=== PATIENT | male | born 1965 | race African-American/Black ===

== ENCOUNTER 2019-02-17 11:00 | Emergency (ER) | payer MEDICAID ==
[~2019-02-17] VITALS: Ht 182.9 cm; Wt 77.1 kg
--- NOTE | 2019-02-17 11:25 | NUR ---
ED Nurse Note: pt walked in to ER as reporting suicidal idea and hearing voices. pt aao x2-3 and ambulatory. calm and cooperative. skin clean and intact. per pt, he hears voices to telling him to jump in to bus to hurt himself. pt is in gown.
--- NOTE | 2019-02-17 11:32 | NUR ---
ED Nurse Note: patient signed on belonging list and belongings are placed in locker #2 after explaining to patient.
[2019-02-17 11:41] VITALS: BP 116/76
[2019-02-17 12:07] LABS: BASOPHILS % (AUTO) 1.5 % (0.0-2.0); EOSINOPHILS % (AUTO) 2.5 % (0.0-3.0); HEMATOCRIT 41.4 % (42.0-52.0); HEMOGLOBIN 13.1 G/DL (14.2-18.0); LYMPHOCYTES % (AUTO) 20.4 % (20.0-45.0); MEAN CORPUSCULAR VOLUME 86 FL (80-99); MONOCYTES % (AUTO) 9.1 % (1.0-10.0); NEUTROPHILS % (AUTO) 66.5 % (45.0-75.0); PLATELET COUNT 321 K/UL (150-450); RED BLOOD COUNT 4.83 M/UL (4.70-6.10); RED CELL DISTRIBUTION WIDTH 13.2 % (11.6-14.8); WHITE BLOOD COUNT 5.4 K/UL (4.8-10.8)
[2019-02-17 12:14] LABS: ANION GAP 10 mmol/L (5-15); BLOOD UREA NITROGEN 29 mg/dL (7-18); CALCIUM 9.5 MG/DL (8.5-10.1); CARBON DIOXIDE 29 MMOL/L (21-32); CHLORIDE 100 MMOL/L (98-107); CREATININE 1.5 MG/DL (0.55-1.30); POTASSIUM 4.1 MMOL/L (3.5-5.1); SODIUM 139 MMOL/L (136-145)
[2019-02-17 12:19] LABS: ALANINE AMINOTRANSFERASE 42 U/L (12-78); ALBUMIN 4.4 G/DL (3.4-5.0); ALBUMIN/GLOBULIN RATIO 1.3 (1.0-2.7); ALKALINE PHOSPHATASE 72 U/L (46-116); ASPARTATE AMINO TRANSFERASE 81 U/L (15-37); BILIRUBIN,TOTAL 0.8 MG/DL (0.2-1.0)
--- NOTE | 2019-02-17 13:19 | Emergency Room Report ---
History of Present Illness General Chief Complaint: Suicidal Source: Patient Present Illness HPI Patient presents with complaints of thoughts of suicide Reports that he was hearing voices telling him to hurt himself there was no obvious specific plan Patient reports history of schizophrenia and bipolar disorder Is off his medications however cannot provide the name of his medications Denies any chest pain or shortness of breath denies any nausea vomiting Allergies: Coded Allergies: No Known Allergies (Unverified , 02/17/19) Patient History Past Medical History: see triage record Reviewed Nursing Documentation: PMH: Agreed; PSxH: Agreed Nursing Documentation-PMH Past Medical History: No History, Except For History Of Psychiatric Problem: Yes - Bipolar, Schizophrenia Review of Systems All Other Systems: negative except mentioned in HPI Physical Exam Vital Signs Date Time Temp Pulse Resp B/P (MAP) Pulse Ox O2 Delivery O2 Flow Rate FiO2 02/17/19 11:10 97.3 87 16 116/76 (89) 97 Room Air Sp02 EP Interpretation: reviewed, normal General Appearance: well appearing, no apparent distress Head: normocephalic, atraumatic Eyes: bilateral eye PERRL, bilateral eye EOMI ENT: hearing grossly normal, normal pharynx, TMs + canals normal, uvula midline Neck: full range of motion, supple, no meningismus, no bony tend Respiratory: lungs clear, normal breath sounds, no rhonchi, no respiratory distress, no retraction, no accessory muscle use Cardiovascular #1: normal peripheral pulses, regular rate, rhythm, no edema, no gallop, no JVD, no murmur Gastrointestinal: normal bowel sounds, non tender, soft, no mass, no organomegaly, non-distended, no guarding, no hernia, no pulsatile mass, no rebound Genitourinary: no CVA tenderness Musculoskeletal: normal inspection Neurologic: oriented x3, responsive, 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, motor strength/ tone normal, sensory intact Psychiatric: other - Reports thoughts of hurting himself Skin: no rash Lymphatic: normal inspection, no adenopathy Medical Decision Making Diagnostic Impression: Primary Impression: Drug abuse Additional Impression: Suicidal ideation ER Course Given the patient's history and presentation Extensive blood work initiated with further psychiatric work-up Patient does show a drug positive with cocaine At this time resting comfortably and will have further evaluation Patient medically cleared pending psychiatric disposition Psychiatric facility contacted and patient accepted for transfer for continued inpatient care Labs Test 02/17/19 11:55 White Blood Count 5.4 K/UL (4.8-10.8) Red Blood Count 4.83 M/UL (4.70-6.10) Hemoglobin 13.1 G/DL (14.2-18.0) Hematocrit 41.4 % (42.0-52.0) Mean Corpuscular Volume 86 FL (80-99) Mean Corpuscular Hemoglobin 27.1 PG (27.0-31.0) Mean Corpuscular Hemoglobin Concent 31.6 G/DL (32.0-36.0) Red Cell Distribution Width 13.2 % (11.6-14.8) Platelet Count 321 K/UL (150-450) Mean Platelet Volume 5.1 FL (6.5-10.1) Neutrophils (%) (Auto) 66.5 % (45.0-75.0) Lymphocytes (%) (Auto) 20.4 % (20.0-45.0) Monocytes (%) (Auto) 9.1 % (1.0-10.0) Eosinophils (%) (Auto) 2.5 % (0.0-3.0) Basophils (%) (Auto) 1.5 % (0.0-2.0) Sodium Level 139 MMOL/L (136-145) Potassium Level 4.1 MMOL/L (3.5-5.1) Chloride Level 100 MMOL/L (98-107) Carbon Dioxide Level 29 MMOL/L (21-32) Anion Gap 10 mmol/L (5-15) Blood Urea Nitrogen 29 mg/dL (7-18) Creatinine 1.5 MG/DL (0.55-1.30) Estimat Glomerular Filtration Rate 48.4 mL/min (>60) Glucose Level 99 MG/DL (74-106) Calcium Level 9.5 MG/DL (8.5-10.1) Total Bilirubin 0.8 MG/DL (0.2-1.0) Aspartate Amino Transf (AST/SGOT) 81 U/L (15-37) Alanine Aminotransferase (ALT/SGPT) 42 U/L (12-78) Alkaline Phosphatase 72 U/L (46-116) Total Protein 7.7 G/DL (6.4-8.2) Albumin 4.4 G/DL (3.4-5.0) Globulin 3.3 g/dL Albumin/Globulin Ratio 1.3 (1.0-2.7) Salicylates Level 1.1 ug/mL (2.8-20) Urine Opiates Screen Negative (NEGATIVE) Acetaminophen Level < 2 MCG/ML (10-30) Urine Barbiturates Screen Negative (NEGATIVE) Phencyclidine (PCP) Screen Negative (NEGATIVE) Urine Amphetamines Screen Negative (NEGATIVE) Urine Benzodiazepines Screen Negative (NEGATIVE) Urine Cocaine Screen Positive (NEGATIVE) Urine Marijuana (THC) Screen Positive (NEGATIVE) Serum Alcohol < 3 mg/dL Last Vital Signs Date Time Temp Pulse Resp B/P (MAP) Pulse Ox O2 Delivery O2 Flow Rate FiO2 02/17/19 11:41 97.3 81 16 116/76 97 Room Air Status: improved Disposition: XFER TO PSYCH HOSP/UNIT Condition: Improved Buddy Carter DO Feb 17, 2019 13:19
--- NOTE | 2019-02-17 13:20 | NUR ---
ED Nurse Note: sandwich and juice provided to pt per request.
--- NOTE | 2019-02-17 13:37 | NUR ---
ED Nurse Note: pt sleeping in bed without distress.
[2019-02-17 18:45] VITALS: BP 119/75
[2019-02-17 19:05] VITALS: BP 115/70
--- NOTE | 2019-02-17 19:05 | NUR ---
ED Nurse Note: received report from NEREIDA Quintanilla and assumed care, pt vss, safety precautions in place, will cont monitor.
--- NOTE | 2019-02-17 19:16 | NUR ---
HAND-OFF: Report given to
--- NOTE | 2019-02-17 19:32 | NUR ---
ED Nurse Note: PT C/O IV SITE PAIN, PT REPORTS HE DOESN'T WANT THE IV IN, ERMD NOTIFIED, IV D/C, DRESSING APPLIED, NO SX INFILTRATION, SKIN INTACT.
[2019-02-17 19:33] LABS: BASOPHILS % (AUTO) 1.8 % (0.0-2.0); HEMATOCRIT 36.3 % (42.0-52.0); HEMOGLOBIN 11.4 G/DL (14.2-18.0); LYMPHOCYTES % (AUTO) 30.1 % (20.0-45.0); MEAN CORPUSCULAR VOLUME 85 FL (80-99); MONOCYTES % (AUTO) 9.7 % (1.0-10.0); NEUTROPHILS % (AUTO) 52.4 % (45.0-75.0); PLATELET COUNT 260 K/UL (150-450); RED BLOOD COUNT 4.25 M/UL (4.70-6.10); RED CELL DISTRIBUTION WIDTH 12.6 % (11.6-14.8); WHITE BLOOD COUNT 5.2 K/UL (4.8-10.8)
[2019-02-17 19:38] LABS: ANION GAP 8 mmol/L (5-15); BLOOD UREA NITROGEN 29 mg/dL (7-18); CALCIUM 8.3 MG/DL (8.5-10.1); CARBON DIOXIDE 27 MMOL/L (21-32); CHLORIDE 102 MMOL/L (98-107); CREATININE 1.4 MG/DL (0.55-1.30); POTASSIUM 3.7 MMOL/L (3.5-5.1); SODIUM 137 MMOL/L (136-145)
[2019-02-17 19:43] LABS: ALANINE AMINOTRANSFERASE 35 U/L (12-78); ALBUMIN 3.3 G/DL (3.4-5.0); ALBUMIN/GLOBULIN RATIO 1.1 (1.0-2.7); ALKALINE PHOSPHATASE 69 U/L (46-116); ASPARTATE AMINO TRANSFERASE 59 U/L (15-37); BILIRUBIN,TOTAL 0.5 MG/DL (0.2-1.0)
--- NOTE | 2019-02-17 20:18 | NUR ---
ED Nurse Note: BLOOD SPECIMEN OBTAINED AND SENT TO LAB.
[2019-02-17 20:32] LABS: AMMONIA 38 umol/L (11-32)
[2019-02-17 20:32] LABS: CREATININE 1.4 MG/DL (0.55-1.30)
--- NOTE | 2019-02-17 20:40 | NUR ---
ED Nurse Note: pt provided w/ sandwich and juice, pt vss, ambulatory w/ steady gait, will cont monitor.
[2019-02-17 20:44] LABS: ALANINE AMINOTRANSFERASE 37 U/L (12-78); ALBUMIN 3.5 G/DL (3.4-5.0); ALKALINE PHOSPHATASE 38 U/L (46-116); ASPARTATE AMINO TRANSFERASE 62 U/L (15-37); BILIRUBIN,DIRECT 0.1 MG/DL (0.0-0.3); BILIRUBIN,TOTAL 0.5 MG/DL (0.2-1.0)
[2019-02-17 21:05] VITALS: BP 113/77
--- NOTE | 2019-02-17 21:07 | NUR ---
Repeat blood test results faxed ti Randolph at [facility] as requested.
[2019-02-17 23:05] VITALS: BP 108/59
--- NOTE | 2019-02-17 23:21 | NUR ---
Followed up with Randolph at [facility] (just came back from his lunch) will call us back.Still reviewing the chart.
[2019-02-18 01:26] VITALS: BP 109/75
--- NOTE | 2019-02-18 02:56 | NUR ---
ED Nurse Note: pt sleeping at this time, no sx distress, will cont monitor. vss.
[2019-02-18 05:17] VITALS: BP 105/79
--- NOTE | 2019-02-18 05:19 | NUR ---
ED Nurse Note: PT GOING TO [facility] [place], VSS, REPORT GIVEN TO AMBULANCE STAFF, BELONGINGS GIVEN TO AMBULANCE STAFF, NO IV SITE, CARE ENDORSED TO EMS STAFF.
== END 2019-02-18 05:17 ==
LOC: EMR 13:05
DX: R45.851 Suicidal ideations (principal); F14.10 Cocaine abuse, uncomplicated; F20.9 Schizophrenia, unspecified; F31.9 Bipolar disorder, unspecified
CPT/HCPCS: 36415; 80053; 80076; 80307; 80329; 82140; 82565; 85025; 96360; 99284